=== PATIENT | female | born 1945 | race Caucasian/White ===

== ENCOUNTER 2022-01-26 10:21 | Inpatient (IN) | payer MEDICARE, MEDICAID ==
[~2022-01-26] VITALS: Ht 170.2 cm; Wt 34.7 kg
[2022-01-26 11:05] LABS: HEMOGLOBIN 13.7 gm/dl (12.3-15.3); RED BLOOD COUNT 4.22 M/UL (4.00-5.10); WHITE BLOOD COUNT 8.4 K/UL (4.5-11.0)
[2022-01-26 11:39] LABS: BUN/CREATININE RATIO 16 (0-10)
[2022-01-26] MEDS ORDERED: MEGACE TAB 40 M40 MG PO (13:31)
[2022-01-26] MEDS ORDERED: TENORMIN50 MG PO (13:31)
[2022-01-26] MEDS ORDERED: ARICEPT10 MG PO (13:31)
[2022-01-26] MEDS ORDERED: ISOSORBIDE MONO30 MG PO (13:31)
[2022-01-26] MEDS ORDERED: KLONOPIN TAB 00.5 MG PO (13:32)
[2022-01-26] MEDS ORDERED: BUSPIRONE HCL30 MG PO (13:32)
[2022-01-26] MEDS ORDERED: ZYPREXA20 MG PO (13:33)
[2022-01-26] MEDS ORDERED: THEOPHYLLINE A300 MG PO (13:33)
[2022-01-26] MEDS ORDERED: OMEPRAZOLE20 MG PO (13:34)
[2022-01-26] MEDS ORDERED: ADVAIR 250-501 EACH INH (13:34)
[2022-01-26] MEDS ORDERED: XANAX0.5 MG PO (13:35)
[2022-01-26] MEDS ORDERED: ECOTRIN325 MG PO (14:05)
[2022-01-26] MEDS ORDERED: VITAMIN D325 MCG PO (14:06)
[2022-01-26] MEDS ORDERED: CETAPHIL CREAM454 GM TOP (14:07)
--- NOTE | 2022-01-27 05:04 | NUR ---
0500 PT HAS PULLED OFF TELEY MONITOR MULTIPLE TIMES TONIGHT. LAST TIME PT STATES NOT TO TOUCH HER OR SHE'LL HAVE (TECH) SENT TO [facility]. NOTIFIED MAYANK ON TELEYMETRY FLOOR AND ALSO NOTIFIED DT. CAMPOS PLACING PT NON-COMPLIANT AT THIS TIME.
[2022-01-27 05:56] LABS: HEMOGLOBIN 14.3 gm/dl (12.3-15.3); RED BLOOD COUNT 4.47 M/UL (4.00-5.10)
[2022-01-27 06:16] LABS: BUN/CREATININE RATIO 21 (0-10)
[2022-01-28 06:18] LABS: HEMOGLOBIN 13.2 gm/dl (12.3-15.3); RED BLOOD COUNT 4.15 M/UL (4.00-5.10)
[2022-01-28 06:24] LABS: WHITE BLOOD COUNT 13.2 K/UL (4.5-11.0)
--- NOTE | 2022-01-28 14:45 | NUR ---
reported of patient no urinary output and approx 60ml fluid intake to dr. hilton and received order
--- NOTE | 2022-01-30 22:00 | NUR ---
Patient refusing to wear Telemetry. aware
--- NOTE | 2022-02-01 19:04 | NUR ---
PROVIDER PLACED ORDERS FOR COMFORT CARE, THEY WOULD NOT ALLOW THE NURSE TO VERIFY THEM BECAUSE THEY WERE INCOMPLETE ON THE PROVIDERS PART. I CONTACTED THE PROVIDER AND TRIED TO RESOLVE THE ISSUE. SHE RESUBMITTED THE ORDERS AND THE SAME THING HAPPENED. I WENT IN AND PLACED THE ORDERS TELEPHONE WITH [employer] AND THEY WERE ABLE TO BE VERFIED THAT WAY.
--- NOTE | 2022-02-01 19:42 | NUR ---
CONTACTED PROVIDER REGARDING PATIENTS MEDICATIONS REGARDING COMFORT MEASURES, SHE STATED TO CONTINUE ALL MEDS UNLESS PATIENT CANNOT TAKE THEM OR REFUSES THEM. NO NEW ORDERS FOR PAIN MEDS OR OANXIETY MEDS AT THIS TIME. WILL ADJUST PATIENTS NEEDS CHANGE
--- NOTE | 2022-02-02 00:26 | NUR ---
PATIENT WAS MOVED TO A NEW BED WITH WORKING BED ALARM. PATIENT TOLERATED WELL
--- NOTE | 2022-02-05 17:35 | NUR ---
PATIENT AGITATED AND CONFUSED. KEEPS TRYING TO GET OUT OF BED. THINKS SHE IS IN HER HOUSE AND WANTS TO GO UPSTAIRS OR LEAVE. INCIDENT COMMANDER CALLED FOR A SITTER. HOUSE SUPERVISER RESPONDED THAT SHE DIDN'T HAVE A SITTER, AND THE REQUEST WAS DENIED. WILL CONTINUE TO MONITOR.
--- NOTE | 2022-02-06 02:33 | NUR ---
ATTEMPTING TO GET AHOLD OF PATIENTS SON, NOTIFIED SPECIAL EDUCATION AIDE THAT I WAS UNABLE TO REACH HIM. WILL KEEP TRYING.
== END 2022-02-06 01:40 | disposition expired | DRG 177 ==
LOC: ER1 10:21 → M/S 12:50 → CDU 12:50 → M/S 14:45
PROVIDERS: Physician Assistant; Physician Assistant Medical; ADMIT Internal Medicine
PROC: B24BZZZ Ultrasonography of Heart with Aorta (ICD-10-PCS; principal; 2022-01-27)
DX: J69.0 Pneumonitis due to inhalation of food and vomit (principal); E43 Unspecified severe protein-calorie malnutrition; G93.41 Metabolic encephalopathy; F03.91 Unspecified dementia, unspecified severity, with behavioral disturbance; Z68.1 Body mass index [BMI] 19.9 or less, adult; F13.20 Sedative, hypnotic or anxiolytic dependence, uncomplicated; Z20.822 Contact with and (suspected) exposure to COVID-19; Z66 Do not resuscitate; Z51.5 Encounter for palliative care; I08.3 Combined rheumatic disorders of mitral, aortic and tricuspid valves; F41.9 Anxiety disorder, unspecified; J44.9 Chronic obstructive pulmonary disease, unspecified; I10 Essential (primary) hypertension; E63.9 Nutritional deficiency, unspecified; I27.20 Pulmonary hypertension, unspecified; F41.0 Panic disorder [episodic paroxysmal anxiety]; R62.7 Adult failure to thrive; R13.10 Dysphagia, unspecified; Z79.01 Long term (current) use of anticoagulants; Z79.82 Long term (current) use of aspirin; Z88.5 Allergy status to narcotic agent; Z88.8 Allergy status to other drugs, medicaments and biological substances; Z80.9 Family history of malignant neoplasm, unspecified; Z83.3 Family history of diabetes mellitus
CPT/HCPCS: 36415; 36600; 51702; 70450; 71045; 80048; 80053; 81001; 82550; 82553; 82803; 83605; 83735; 84484; 85025; 87086; 92526; 92610; 93005; 93308; 94640; 94664; 94760; 96374; 96375; 99285; G0378; J1335; J2405; U0002